=== PATIENT | male | born 1980 | race African-American/Black ===

== ENCOUNTER 2016-04-22 13:35 | Emergency (ER) | payer MEDICARE, OTHER ==
[~2016-04-22] VITALS: Ht 175.3 cm; Wt 124.7 kg
[2016-04-22 13:59] VITALS: BP 118/88
--- NOTE | 2016-04-22 14:03 | Emergency Room Report ---
History of Present Illness General Chief Complaint: Upper Extremity Injury Source: Family Member (GEOVANY POMPA) Present Illness HPI The patient is a 35-year-old male with developmental delay brought in by mother for left hand injury. The mother states that the patient fell out of his chair 2 weeks prior and went to an urgent care. The mother states that the urgent care did not perform x-rays or placed the patient in a splint. They were instructed to followup in 2 weeks. The mother states that the patient has been using the hand normally and has not been complaining of pain. The patient is unable to provide any information. (GEOVANY POMPA) Allergies: Coded Allergies: No Known Allergies (Unverified , 04/22/16) Patient History Past Medical History: see triage record Pertinent Family History: none (GEOVANY POMPA) Nursing Documentation-[facility] Past Medical History: No Stated History (GEOVANY POMPA) Review of Systems All Other Systems: negative except mentioned in HPI (GEOVANY POMPA.Reynaldo) Physical Exam Vital Signs Date Time Temp Pulse Resp B/P Pulse Ox O2 Delivery O2 Flow Rate FiO2 04/22/16 13:48 97.9 134 14 118/88 97 Room Air Sp02 EP Interpretation: reviewed, normal General Appearance: no apparent distress, alert, GCS 15, non-toxic Head: normocephalic, atraumatic Eyes: bilateral eye PERRL, bilateral eye normal inspection Musculoskeletal: normal inspection, normal range of motion, non-tender Neurologic: alert, responsive, motor strength/tone normal, sensory intact, speech normal Skin: normal color, no rash, warm/dry, well hydrated Lymphatic: no adenopathy (GEOVANY POMPA P.A.) Procedures Splinting Splinting : Consent: Verbal Location: L wrist Pre-Made Type: velcro Splint: wrist Pre-Proc Neuro Vasc Exam: normal Post-Proc Neuro Vasc Exam: normal Patient Tolerated: Well Complications: None (GEOVANY POMPA P.AYeison) Medical Decision Making PA Attestation Dr. Gonsalves is my supervising physician. Patient management was discussed with my supervising physician (GEOVANY POMPAAYeison) Diagnostic Impression: Primary Impression: Left wrist dislocation Qualified Codes: S63.005A - Unspecified dislocation of left wrist and hand, initial encounter Additional Impression: Developmental delay ER Course The patient is a 35-year-old male with developmental delay brought in by mother for left hand injury. Ddx considered include but not limited to sprain/strain, fracture, contusion, dislocation PE: Pt is tachycardic and is visibly anxious while vitals being taken. Otherwise unremarkable Left wrist: No edema. No ecchymosis. Full active range of motion. Nontender. Sensation intact. Xray of wrist read as a scaphoid/lunate dislocation. Mother was called and voicemail left for patient to see orthopedic doctor as soon as possible. Dr. Gonsalves has spoken with the patient's mom and advised her to return to emergency department today. The patient states that she is unable to today and will take the patient tomorrow. The mother is advised this may have long-term consequences and understands. The patient was placed in a left short-arm splint. ER precautions are given (GEOVANY POMPA P.A.) ER Course See above history, physical and x-ray results. Scribe documentation reviewed by me and is accurate. Xray reveals scapholunate dislocation. Contacted mother and told needs to go to [facility] (recommended by Dr. Chan for hand surgeon). She understands need for immediate treatment. I told her that if this was delayed, that the hand would never heal properly. She understood and refused. I offered to send an ambulance or taxi and she refused this. She agreed to take patient to [facility] in the AM. (Then she state she would probably wait for Tuesday.) (Jason Gonsalves M.D.) Other X-Ray Diagnostic Results Other X-Ray Diagnostic Results : X-Ray Ordered: L wrist Date: Apr 22, 2016 EP Interpretation: Yes Findings: no fractures, other - Scapholunate dissociation PA Scribe Text I am acting as scribe for my supervising physician. My supervising physician's interpretation of the L wrist xrays are there are no fractures but there is a widening of the scaphoid and lunate (GEOVANY POMPA P.A.) Last Vital Signs Date Time Temp Pulse Resp B/P Pulse Ox O2 Delivery O2 Flow Rate FiO2 04/22/16 13:48 97.9 134 14 118/88 97 Room Air Status: improved (GEOVANY POMPA) Disposition: HOME, SELF-CARE Condition: Improved Scripts Ibuprofen* (MOTRIN*) 600 Mg Tablet 600 MG ORAL Q8H Y for For Pain, #30 TAB 0 Refills Prov: GEOVANY POMPA 04/22/16 GEOVANY POMPA Apr 22, 2016 14:03 Jason Gonsalves M.D. Apr 23, 2016 03:24
[2016-04-22] MEDS ORDERED: IBUPROFEN600 MG ORAL (14:52)
[2016-04-22 15:01] VITALS: BP 124/81
--- NOTE | 2016-04-22 15:08 | Diagnostic Imaging Report ---
Indication: Pain Findings: 3 views of the left wrist were obtained. There is no acute fracture identified. However the scapholunate distance is markedly wide indicating scapholunate dissociation. Soft tissues are unremarkable. Impression: No acute injury identified. Scapholunate dissociation
== END 2016-04-22 15:11 | disposition home or self-care (01) ==
LOC: EMR 14:19
DX: S63.095A Other dislocation of left wrist and hand, initial encounter (principal); W07.XXXA Fall from chair, initial encounter; Y92.9 Unspecified place or not applicable; R00.0 Tachycardia, unspecified
CPT/HCPCS: 29260; 99283